=== PATIENT | male | born 1990 | race Caucasian/White ===

== ENCOUNTER 2020-03-02 19:44 | Observation (INO) | payer BC ==
[2020-03-02 20:04] VITALS: BMI 33.6
[2020-03-02] MEDS ORDERED: ACETAMINOPHEN 500 MG TAB PO PRN (22:03)
[2020-03-02] MEDS ORDERED: MORPHINE 4 MG/ML SYR IV PRN (22:03)
[2020-03-02] MEDS ORDERED: ONDANSETRON 4 MG/2 ML VIAL IV PRN (22:03)
--- NOTE | 2020-03-02 23:50 | P.HP ---
Certification for Inpatient Patient admitted to: Observation With expected LOS: <2 Midnights Patient will require the following post-hospital care: None Practitioner: I am a practitioner with admitting privileges, knowledge of patient current condition, hospital course, and medical plan of care. Services: Services provided to patient in accordance with Admission requirements found in Title 42 Section 412.3 of the Code of Federal Regulations <GuilleNoel - Last Filed: 03/02/20 23:44> Patient History Date of Service: 03/02/20 Primary Care Provider: Dr. Sanchez Reason for admission: Chest Pain History of Present Illness: This is a 29-year-old gentleman that was initially seen at [facility] emergency room for hypertensive urgency and chest pain that started acutely today. Patient stated that he has had several 's stressful events that have occurred recently causing him to be more anxious. Stated that he does have a history of mild hypercholesterolemia in the past and blood pressure but that is controlled with diet currently. Stated that he started to have some numbness of the face today after he became distressed and then started to have chest tightness. At that time patient went to the free standing emergency room for further evaluation and was worked up for chest pain. Initial evaluation did not show any acute findings on blood work but the patient was found to be very lipemic in nature. Because of this they are concerned that there may be some underlying pathology with his past medical history and then current events. Patient was directly admitted to Dr. Romero. I was called to evaluate patient for further work up for his chest pain. Patient stated that he is feeling better at this time. Home medications list reviewed: Yes - Past Medical/Surgical History Has patient received pneumonia vaccine in the past: No Diabetic: No -: HTN -: High Cholesterol Past Surgical History: Patient denies surgical history - Family History Family History: Reviewed- Non-Contributory - Social History Smoking Status: Never smoker Smoking therapy provided: No Alcohol use: Yes CD- Drugs: No Caffeine use: Yes Place of Residence: Home <Noel Han - Last Filed: 03/02/20 23:44> Date of Service: 03/02/20 <Jesus Romero - Last Filed: 03/10/20 15:19> Allergies No Known Allergies Allergy (Verified 03/02/20 21:39) Home Medications: NK [No Home Meds] 03/02/20 Review of Systems General: Unremarkable Eyes: Unremarkable ENT: Unremarkable Cardiovascular: Chest Pain Gastrointestinal: Unremarkable Genitourinary: Unremarkable Musculoskeletal: Unremarkable Integumentary: Unremarkable Neurological: Unremarkable Lymphatics: Unremarkable <Noel Han - Last Filed: 03/02/20 23:44> Physical Examination - Vital Signs Temperature: 97.3 F Blood Pressure: 122/86 Pulse: 74 Respirations: 16 Pulse Ox (%): 98 - Physical Exam General: Alert, In no apparent distress, Oriented x3, Cooperative HEENT: PERRLA, Mucous membr. moist/pink, EOMI Neck: Supple, 2+ carotid pulse no bruit, JVD not distended, No Thyromegaly Respiratory: Clear to auscultation bilaterally, Normal air movement Cardiovascular: No edema, Normal pulses, Regular rate/rhythm, Normal S1 S2, No gallops, No rubs, No murmurs Capillary refill: <2 Seconds Gastrointestinal: Normal bowel sounds, Soft and benign, Non-distended, No ascites, No tenderness, No masses, No rebound, No guarding Musculoskeletal: No clubbing, No swelling, No contractures, No erythema, No tenderness, No warmth Integumentary: No rashes, No breakdown, No significant lesion, No tend erness/swelling, No erythema, No warmth, No cyanosis Neurological: Normal speech, Normal strength at 5/5 x4 extr, Normal tone, Sensation intact, Cranial nerves 3-12 intact, Normal affect Lymphatics: No axilla or inguinal lymphadenopathy - Studies Laboratory Data (last 24 hrs) 03/02/20 23:00: Troponin I < 0.02 <Noel Han - Last Filed: 03/02/20 23:44> Assessment and Plan - Problems (Diagnosis) (1) Chest pain Status: Acute Qualifiers: Chest pain type: unspecified Qualified Code(s): R07.9 - Chest pain, unspecified (2) Hypertension Status: Acute Qualifiers: Hypertension type: essential hypertension Qualified Code(s): I10 - Essential (primary) hypertension (3) Hypercholesterolemia Status: Chronic - Plan 1. Patient will have trended troponins over the next several hr to ensure that it does not elevate. EKGs as necessary. 2. Pain medication as needed for chest pain 3. Vitals will be monitored for hypertensive elevations and will correct as necessary 4. Lipase will be checked for the lipemic blood work and cholesterol panel will also be drawn 5. Will continue to monitor patient over the next 23 hr. Patient most likely had hypertensive event that caused him to have chest tightness plus or minus some anxiety today based on his story. Unlikely that this is cardiac in origin but will continue to rule him out for the next 24 hr. If something were to acutely change will consult cardiology. Will further assess his lipid panel to see if patient needs to be on any anti lipidemic medication and blood pressure medicine as well. Discharge Plan: Home Plan to discharge in: 24 Hours - Advance Directives Does patient have a Living Will: No Does patient have a Durable POA for Healthcare: No - Code Status/Comfort Care Code Status Assessed: Yes Code Status: Full Code Critical Care: No Time Spent Managing Pts Care (In Minutes): 70 <Noel Han - Last Filed: 03/02/20 23:44> Date of Service: 03/02/20 Patient Will be admitted to be ruled out for acute coronary syndrome. Chart has been reviewed. Events in the last 24 hours has been noted. Agree with above findings as mentioned by PA. <Jesus Romero - Last Filed: 03/10/20 15:19>
[2020-03-03 03:16] LABS: Absolute Lymphocytes (CBC) 3.3 K/uL (0.7-4.9); Basophils % 0.5 % (0-1.3); Hematocrit 44.7 % (39.6-49.0); Lymphocytes % 34.2 % (15.3-44.8); MPV 7.9 fL (7.6-11.3); RBC Red Blood Cell Count 5.14 M/uL (4.33-5.43)
[2020-03-03 03:26] LABS: BUN Blood Urea Nitrogen 12 mg/dL (7-18); Bicarbonate 30 mmol/L (21-32); Glucose Level 90 mg/dL (74-106); HDL Cholesterol 35 mg/dL (40-60); LDL Cholesterol, Calculated 164 (<130); Lipase 95 U/L (73-393); Potassium 3.8 mmol/L (3.5-5.1); Sodium Level 143 mmol/L (136-145)
--- NOTE | 2020-03-03 08:58 | P.DS ---
Discharge Date: 03/03/20 Primary Care Provider: Dr. Sanchez Disposition: ROUTINE DISCHARGE Discharge Condition: GOOD Reason for Admission: Chest Pain Brief History of Present Illness: Patient is a 29-year-old gentleman who came into the hospital with chest discomfort. Patient was transferred to our facility from local emergency room for further evaluation. Hospital Course: Patient has been ruled out for acute coronary syndrome. EKG did not reveal any abnormality. At this time, patient is stable for discharge home. Vital Signs/Physical Exam: Temp Pulse Resp BP Pulse Ox 97.4 F 91 H 16 119/78 98 03/03/20 08:00 03/03/20 08:00 03/03/20 08:00 03/03/20 08:00 03/03/20 08:00 General: Alert, In no apparent distress, Oriented x3 Laboratory Data at Discharge: WBC 9.6 K/uL (4.3-10.9) 03/03/20 02:50 Hgb 15.0 g/dL (13.6-17.9) 03/03/20 02:50 Hct 44.7 % (39.6-49.0) 03/03/20 02:50 Plt Count 309 K/uL (152-406) 03/03/20 02:50 Sodium 143 mmol/L (136-145) 03/03/20 02:50 Potassium 3.8 mmol/L (3.5-5.1) 03/03/20 02:50 BUN 12 mg/dL (7-18) 03/03/20 02:50 Creatinine 0.76 mg/dL (0.55-1.3) 03/03/20 02:50 Glucose 90 mg/dL (74-106) 03/03/20 02:50 Troponin I < 0.02 ng/mL (0.0-0.045) 03/03/20 02:50 Triglycerides 186 mg/dL (<150) H 03/03/20 02:50 Cholesterol 236 mg/dL (<200) H 03/03/20 02:50 HDL Cholesterol 35 mg/dL (40-60) L 03/03/20 02:50 Cholesterol/HDL Ratio 6.74 03/03/20 02:50 Lipase 95 U/L (73-393) 03/03/20 02:50 Home Medications: NK [No Home Meds] 03/02/20 Patient Discharge Instructions: OK TO DC IV AND DC to HOME. FOLLOW-UP WITH PRIMARY CARE PROVIDER IN 1-2 WEEKS. FOLLOW-UP WITH CARDIOLOGY IN 2-4 WEEKS. RETURN TO THE ER IF symptoms worsen. CALL or TEXT DR. LYNCH AT [phone] IF ANY QUESTIONS REGARDING HOSPITAL STAY. PLEASE CALL THE FLOOR AT [phone] IF ANY MEDICATION OR NURSING QUESTIONS. Diet: AHA Activity: Fall precautions Followup: Dwayne Rivera MD [ACTIVE - CAN ADMIT] - Time spent managing pt's care (in minutes): 25
[2020-03-03] MEDS ORDERED: ASPIRIN EC 81 MG TAB PO SCH (09:00)
[2020-03-03 10:01] VITALS: O2SAT 98
[2020-03-03 12:54] VITALS: BP 130/90
[2020-03-03 13:06] VITALS: TEMP 97.9
--- NOTE | 2020-03-04 19:15 | EKG ---
Test Date: 2020-03-03 Test Time: 17:22:14 Mail Carrier Technician: CHETNA MEASUREMENT RESULTS: Intervals: Rate: 81 [place]: 188 QRSD: 90 QT: 360 QTc: 418 [place]: P: 29 [place]: 188 QRS: 43 T: 21 INTERPRETIVE STATEMENTS: Normal sinus rhythm Normal ECG No previous ECG available for comparison Electronically Signed On 03-04-20 19:12:52 CALL CENTER SUPPORT CONSULTANT by Dwayne Rivera
== END 2020-03-03 13:19 | disposition home or self-care (01) ==
LOC: 2ND 19:44 → INTOOBSV 19:44
PROVIDERS: ADMIT Hospitalist; ATTEND Hospitalist
DX: R07.9 Chest pain, unspecified (principal); I10 Essential (primary) hypertension; E78.00 Pure hypercholesterolemia, unspecified; Z20.828 Contact with and (suspected) exposure to other viral communicable diseases
CPT/HCPCS: 36415; 80048; 80061; 83690; 84484; 85025; 93005; U0002

== ENCOUNTER 2020-03-03 17:02 | Emergency (ER) | payer BC ==
[2020-03-03] MEDS ORDERED: FOLIC ACID 5 MG/ML VIAL ONE (17:51)
[2020-03-03] MEDS ORDERED: NA CHLORIDE 0.9% 1,000 ML ONE (17:51)
--- NOTE | 2020-03-03 18:08 | RAD REPORT ---
EXAM DESCRIPTION: CT - Head Brain Wo Cont - 03/03/2020 5:57 pm CLINICAL HISTORY: Headache COMPARISON: None. TECHNIQUE: Computed axial tomography of the head was obtained. IV contrast was not requested. All CT scans are performed using dose optimization technique as appropriate and may include automated exposure control or mA/KV adjustment according to patient size. FINDINGS: An intracranial bleed is not seen . The ventricles are normal in caliber. No extra-axial fluid collection is noted. Fluid within the sinuses/ mastoids is not seen. IMPRESSION: No acute intracranial abnormality is seen. If patient's symptoms persist MRI of the bra in would be recommended.
[2020-03-03 18:22] LABS: Absolute Lymphocytes (CBC) 1.3 K/uL (0.7-4.9); Basophils % 0.4 % (0-1.3); Hematocrit 49.2 % (39.6-49.0); Lymphocytes % 14.3 % (15.3-44.8); MPV 7.9 fL (7.6-11.3); RBC Red Blood Cell Count 5.69 M/uL (4.33-5.43)
--- NOTE | 2020-03-03 18:29 | RAD REPORT ---
EXAM DESCRIPTION: Trini Single View03/03/2020 6:06 pm CLINICAL HISTORY: Chest pain COMPARISON: 2017 FINDINGS: The lungs appear clear of acute infiltrate. The heart is normal size IMPRESSION: No acute abnormalities displayed
[2020-03-03 18:38] LABS: Protime INR 1.08
[2020-03-03 18:42] LABS: ALT/SGPT 122 U/L (12-78); AST/SGOT 48 U/L (15-37); Albumin 3.9 g/dL (3.4-5.0); Alkaline Phosphatase 90 U/L (45-117); BUN Blood Urea Nitrogen 10 mg/dL (7-18); Bicarbonate 26 mmol/L (21-32); Bilirubin Direct < 0.1 mg/dL (0-0.2); Bilirubin Total 0.5 mg/dL (0.2-1.0); Glucose Level 96 mg/dL (74-106); Magnesium 2.4 mg/dL (1.8-2.4); NT PRO-BNP 54 pg/mL (<125); Potassium 3.6 mmol/L (3.5-5.1); Protein, Total 8.1 g/dL (6.4-8.2); Sodium Level 141 mmol/L (136-145); Troponin (Emerg Dept Use Only) < 0.02 ng/mL (0.0-0.045)
[2020-03-03] MEDS ORDERED: AMLODIPINE 5 MG TAB ONE (19:01)
--- NOTE | 2020-03-03 19:43 | RAD REPORT ---
EXAM DESCRIPTION: MRI - Brain Wo Cont - 03/03/2020 7:20 pm CLINICAL HISTORY: Numbness COMPARISON: none TECHNIQUE: Axial, sagittal, and coronal magnetic images of the brain were obtained. Contrast was not requested FINDINGS: No abnormal signal is present within the brain. Diffusion-weighted/ADC mapping does not reveal evidence of acute infarction. The ventricles are normal caliber. An extra-axial fluid collection is not present Fluid within the sinuses/mastoids is not noted IMPRESSION: No acute abnormality is displayed
--- NOTE | 2020-03-03 19:50 | ER ---
Nurse's Notes [facility] Name: Gabe Norris Age: 29 yrs Sex: Male : 1990 Arrival Date: 03/03/2020 Time: 17:03 Bed 3 Private MD: Diagnosis: Essential (primary) hypertension;Anxiety disorder, unspecified;Hyperlipidemia, unspecified Presentation: 03/03 17:17 Chief complaint: Patient states: i started having some symptoms of a stroke around 4:10 tw2 pm today, i had covid so i cant smell, but then i smelled burnt toast, and then my head started to get this fuzzy and numb feeling, i have an appt with my doctor for BP meds. Coronavirus screen: The client reports previous COVID testing was negative. Date of collection: February 06, 2020. Ebola Screen: Patient denies travel to an Ebola-affected area in the 21 days before illness onset. Initial Sepsis Screen: Does the patient meet any 2 criteria? No. Patient's initial sepsis screen is negative. Does the patient have a suspected source of infection? No. Patient's initial sepsis screen is negative. Risk Assessment: Do you want to hurt yourself or someone else? Patient reports no desire to harm self or others. Onset of symptoms was March 03, 2020. 17:17 Method Of Arrival: Wheelchair tw2 17:17 Acuity: AMARJIT 3 tw2 Triage Assessment: 17:17 General: Appears in no apparent distress. Behavior is cooperative, anxious, quiet. tw2 Pain: Denies pain. EENT: No signs and/or symptoms were reported regarding the EENT system. Neuro: Level of Consciousness is awake, alert, obeys commands, Oriented to person, place, time, situation. Cardiovascular: Heart tones S1 S2 Patient's skin is warm and dry. Respiratory: Airway is patent Respiratory effort is even, unlabored, Respiratory pattern is regular, symmetrical, Breath sounds are clear bilaterally. GI: No signs and/or symptoms were reported involving the gastrointestinal system. Abdomen is round non-distended, obese, Bowel sounds present X 4 quads. : No signs and/or symptoms were reported regarding the genitourinary system. Derm: No signs and/or symptoms reported regarding the dermatologic system. Musculoskeletal: Range of motion: intact in all extremities, equal engraver wood b/l. Historical: - Allergies: 17:18 No Known Allergies; ph - Home Meds: 17:18 None [Active]; ph - PMHx: 17:18 None; ph - Immunization history:: Adult Immunizations unknown. - Social history:: Smoking status: Patient denies any tobacco usage or history of. Patient uses alcohol, occasionally. - Family history:: not pertinent. Screenin:17 Abuse screen: Denies threats or abuse. Denies injuries from another. Nutritional ph screening: No deficits noted. Tuberculosis screening: No symptoms or risk factors identified. Fall Risk None identified. Assessment: 17:21 Reassessment: see triage assessment. tw2 17:29 Reassessment: provider at bedside at this time. tw2 18:44 Reassessment: Patient appears in no apparent distress at this time. No changes from tw2 previously documented assessment. Patient and/or family updated on plan of care and expected duration. Pain level reassessed. Patient is alert, oriented x 3, equal unlabored respirations, skin warm/dry/pink. Vital Signs: 17:17 BP 156 / 123; Pulse 89; Resp 16; Temp 97.3; Pulse Ox 100% on R/A; Weight 91.72 kg (R); tw2 Height 5 ft. 5 in. (165.10 cm); 18:44 BP 147 / 100; Pulse 79; Resp 14; Pulse Ox 99% on R/A; tw2 19:29 BP 163 / 109; Pulse 86; Resp 18; Pulse Ox 100% on R/A; mg2 17:17 Body Mass Index 33.65 (91.72 kg, 165.10 cm) tw2 Hu Coma Score: 17:21 Eye Response: spontaneous(4). Verbal Response: oriented(5). Motor Response: obeys tw2 commands(6). Total: 15. NIH Stroke Scale Scores: 17:22 NIHSS Score: 0 tw2 17:36 NIHSS Score: 0 earl ED Course: 17:03 Patient arrived in ED. as 17:17 Alessandra Biggs, RN is Primary Nurse. tw2 17:18 Patient has correct armband on for positive identification. Placed in gown. Bed in low ph position. Call light in reach. Side rails up X 1. Pulse ox on. NIBP on. Door closed. Noise minimized. Warm blanket given. 17:18 Arm band placed on Patient placed in an exam room, on a stretcher. ph 17:20 Triage completed. tw2 17:26 Mp Dunbar MD is Attending Physician. [facility] 17:26 EKG done, by ED staff, reviewed by Mp Dunbar MD. mh5 17:45 CT Head Brain wo Cont Sent. 5 17:45 LFT's Sent. 5 17:45 Magnesium Sent. 5 17:45 NT PRO-BNP Sent. 5 17:45 PT-INR Sent. 5 17:46 Troponin (emerg Dept Use Only) Sent. 5 17:46 Basic Metabolic Panel Sent. 5 17:46 CBC with Diff Sent. 5 17:46 Initial lab(s) drawn, by me, sent to lab. Inserted saline lock: 20 gauge in right [facility] antecubital area, using aseptic technique. Blood collected. 17:57 CT Head Brain wo Cont In Process Unspecified. EDMS 18:05 XRAY Chest (1 view) In Process Unspecified. EDMS 18:17 Basic Metabolic Panel Sent. 5 18:17 CBC with Diff Sent. 5 18:17 LFT's Sent. mh5 18:17 Magnesium Sent. 5 18:17 NT PRO-BNP Sent. 5 18:17 PT-INR Sent. 5 18:17 Troponin (emerg Dept Use Only) Sent. 5 18:18 Lab(s) recollected, by me, sent to lab. [facility] 18:57 Report given to HarithaRN and MILLA Gardiner. tw2 19:20 Brain Wo Cont In Process Unspecified. EDMS 19:50 Dwayne Rivera MD is Referral Physician. earl 19:50 Zander Valle MD is Referral Physician. [facility] 20:05 No provider procedures requiring assistance completed. IV discontinued, intact, mg2 bleeding controlled, No redness/swelling at site. Pressure dressing applied. Administered Medications: Discontinued: NS 0.9% 1000 ml IV at 125 ml/hr continuous 17:40 Drug: NS 0.9% 1000 ml Route: IV; Rate: 125 ml/hr; Site: right antecubital; tw2 17:40 Drug: foLIC Acid 1 mg Route: IVPB; Site: right antecubital; tw2 19:00 Follow up: Response: No adverse reaction; IV Status: Completed infusion mg2 18:49 Drug: Norvasc 5 mg Route: PO; tw2 20:00 Follow up: Response: No adverse reaction mg2 19:52 Drug: Aspirin 162 mg Route: PO; mg2 20:00 Follow up: Response: No adverse reaction; Medication administered at discharge. mg2 19:52 Drug: Ativan 0.5 mg Route: IVP; Site: right antecubital; mg2 20:00 Follow up: Response: No adverse reaction; Medication administered at discharge. mg2 19:52 Drug: ToPROL XL 25 mg Route: PO; mg2 20:00 Follow up: Response: No adverse reaction; Medication administered at discharge. mg2 Outcome: 19:50 Discharge ordered by MD. earl 20:05 Discharged to home via wheelchair, with family. mg2 20:05 Condition: stable 20:05 Discharge instructions given to patient, family, Instructed on discharge instructions, follow up and referral plans. medication usage, Demonstrated understanding of instructions, follow-up care, medications, Prescriptions given X 20:06 Patient left the ED. mg2 NIH Stroke Scale - NIH Stroke Score Date: 03/03/2020 Time: 17:22 Total Score = 0 1a. Level of Consciousness (LOC) - 0(Alert) 1b. Level of Consciousness (LOC) (Year \T\ Age) - 0(Both) 1c. LOC Commands (Open \T\ Closes Eyes/Food Service) - 0(Both) 2. Best Gaze (Lateral Gaze Paresis) - 0(Normal) 3. Visual Field Loss - 0(No visual loss) 4. Facial Palsy - 0(Normal) 5a. Left Arm: Motor (10-second hold) - 0(No drift) 5b. Right Arm: Motor (10-second hold) - 0(No drift) 6a. Left Leg: Motor (5-second hold - always test supine) - 0(No drift) 6b. Right Leg: Motor (5-second hold - always test supine) - 0(No drift) 7. Limb Ataxia (finger/nose \T\ heel/barr - test with eyes open) - 0(Absent) 8. Sensory Loss (pinprick arms/legs/face) - 0(Normal) 9. Best Language: Aphasia (description/naming/reading) - 0(No aphasia) 10. Dysarthria (speech clarity - read or repeat words) - 0(Normal) 11. Extinction and Inattention (visual/tactile/auditory/spatial/personal) - 0(No abnormality) Initials: tw2 NIH Stroke Scale - NIH Stroke Score Date: 03/03/2020 Time: 17:36 Total Score = 0 1a. Level of Consciousness (LOC) - 0(Alert) 1b. Level of Consciousness (LOC) (Year \T\ Age) - 0(Both) 1c. LOC Commands (Open \T\ Closes Eyes/Food Service) - 0(Both) 2. Best Gaze (Lateral Gaze Paresis) - 0(Normal) 3. Visual Field Loss - 0(No visual loss) 4. Facial Palsy - 0(Normal) 5a. Left Arm: Motor (10-second hold) - 0(No drift) 5b. Right Arm: Motor (10-second hold) - 0(No drift) 6a. Left Leg: Motor (5-second hold - always test supine) - 0(No drift) 6b. Right Leg: Motor (5-second hold - always test supine) - 0(No drift) 7. Limb Ataxia (finger/nose \T\ heel/barr - test with eyes open) - 0(Absent) 8. Sensory Loss (pinprick arms/legs/face) - 0(Normal) 9. Best Language: Aphasia (description/naming/reading) - 0(No aphasia) 10. Dysarthria (speech clarity - read or repeat words) - 0(Normal) 11. Extinction and Inattention (visual/tactile/auditory/spatial/personal) - 0(No abnormality) Initials: earl Signatures: Dispatcher [employer] EDMp Hernandez MD MD cha Martinez, Amelia as Hall, Patricia, RN RN Alessandra Biggs RN RN [facility] Cynthia Matt [facility] Ryan Sparrow RN RN mg2 Corrections: (The following items were deleted from the chart) 17:22 17:17 Musculoskeletal: Range of motion: intact in all extremities, tw2 tw2 17:34 17:17 BP 98 / 61; Pulse 67bpm; Resp 12bpm; Pulse Ox 95% RA; Temp 97.3F tw2 Temporal; 91.72 kg Reported; Height 5 ft. 5 in.; BMI: 33.6; Pain 0/10; tw2 17:34 17:17 BP 156 / 123; Pulse 89bpm; Resp 16bpm; Pulse Ox 100% RA; tw2 tw2
--- NOTE | 2020-03-03 19:50 | EDPHYS ---
Physician Documentation [facility] Name: Gabe Norris Age: 29 yrs Sex: Male : 1990 Arrival Date: 03/03/2020 Time: 17:03 Bed 3 Private MD: ED Physician Mp Dunbar HPI: 03/03 17:36 This 29 yrs old Male presents to ER via Wheelchair with complaints of earl Numbness Of Face, Numbness Of Arm, High Blood Pressure. 17:36 The patient's problem is reported as paresthesias, all over, weakness. Onset: The earl symptoms/episode began/occurred just prior to arrival, this morning. Duration: The episode is continuous. Context: the episode(s) was witnessed, by a friend. The symptoms are alleviated by nothing. The symptoms are aggravated by nothing. Associated signs and symptoms: Pertinent positives: dizziness, gait abnormality, headache, lightheadedness. Severity of symptoms: At their worst the symptoms were mild moderate in the emergency department the symptoms are unchanged. Patient's baseline: Neuro: alert and fully oriented. The patient has not experienced similar symptoms in the past. Historical: - Allergies: 17:18 No Known Allergies; ph - Home Meds: 17:18 None [Active]; ph - PMHx: 17:18 None; ph - Immunization history:: Adult Immunizations unknown. - Social history:: Smoking status: Patient denies any tobacco usage or history of. Patient uses alcohol, occasionally. - Family history:: not pertinent. ROS: 17:36 Constitutional: Negative for fever, chills, and weight loss, Eyes: Negative for injury, earl pain, redness, and discharge, ENT: Negative for injury, pain, and discharge, Neck: Negative for injury, pain, and swelling, Cardiovascular: Negative for chest pain, palpitations, and edema, Respiratory: Negative for shortness of breath, cough, wheezing, and pleuritic chest pain, Abdomen/GI: Negative for abdominal pain, nausea, vomiting, diarrhea, and constipation, Back: Negative for injury and pain, : Negative for injury, bleeding, discharge, and swelling, MS/Extremity: Negative for injury and deformity, Skin: Negative for injury, rash, and discoloration, Psych: Negative for depression, anxiety, suicide ideation, homicidal ideation, and hallucinations, Allergy/Immunology: Negative for hives, rash, and allergies, Endocrine: Negative for neck swelling, polydipsia, polyuria, polyphagia, and marked weight changes, Hematologic/Lymphatic: Negative for swollen nodes, abnormal bleeding, and unusual bruising. 17:36 Neuro: Positive for headache, weakness. Exam: 17:36 Constitutional: This is a well developed, well nourished patient who is awake, alert, earl and in no acute distress. Head/Face: Normocephalic, atraumatic. Eyes: Pupils equal round and reactive to light, extra-ocular motions intact. Lids and lashes normal. Conjunctiva and sclera are non-icteric and not injected. Cornea within normal limits. Periorbital areas with no swelling, redness, or edema. ENT: Nares patent. No nasal discharge, no septal abnormalities noted. Tympanic membranes are normal and external auditory canals are clear. Oropharynx with no redness, swelling, or masses, exudates, or evidence of obstruction, uvula midline. Mucous membranes moist. Neck: Trachea midline, no thyromegaly or masses palpated, and no cervical lymphadenopathy. Supple, full range of motion without nuchal rigidity, or vertebral point tenderness. No Meningismus. Chest/axilla: Normal chest wall appearance and motion. Nontender with no deformity. No lesions are appreciated. Cardiovascular: Regular rate and rhythm with a normal S1 and S2. No gallops, murmurs, or rubs. Normal PMI, no JVD. No pulse deficits. Respiratory: Lungs have equal breath sounds bilaterally, clear to auscultation and percussion. No rales, rhonchi or wheezes noted. No increased work of breathing, no retractions or nasal flaring. Abdomen/GI: Soft, non-tender, with normal bowel sounds. No distension or tympany. No guarding or rebound. No evidence of tenderness throughout. Back: No spinal tenderness. No costovertebral tenderness. Full range of motion. Male : Normal genitalia with no discharge or lesions. Skin: Warm, dry with normal turgor. Normal color with no rashes, no lesions, and no evidence of cellulitis. MS/ Extremity: Pulses equal, no cyanosis. Neurovascular intact. Full, normal range of motion. Neuro: Awake and alert, GCS 15, oriented to person, place, time, and situation. Cranial nerves II-XII grossly intact. Motor strength 5/5 in all extremities. Sensory grossly intact. Cerebellar exam normal. Normal gait. Psych: Awake, alert, with orientation to person, place and time. Behavior, mood, and affect are within normal limits. 17:40 ECG was reviewed by the Attending Physician. earl 19:25 Radiologist reports: negative, see report earl Vital Signs: 17:17 BP 156 / 123; Pulse 89; Resp 16; Temp 97.3; Pulse Ox 100% on R/A; Weight 91.72 kg (R); tw2 Height 5 ft. 5 in. (165.10 cm); 18:44 BP 147 / 100; Pulse 79; Resp 14; Pulse Ox 99% on R/A; tw2 19:29 BP 163 / 109; Pulse 86; Resp 18; Pulse Ox 100% on R/A; mg2 17:17 Body Mass Index 33.65 (91.72 kg, 165.10 cm) tw2 NIH Stroke Scale Scores: 17:22 NIHSS Score: 0 tw2 17:36 NIHSS Score: 0 earl Hu Coma Score: 17:21 Eye Response: spontaneous(4). Verbal Response: oriented(5). Motor Response: obeys tw2 commands(6). Total: 15. MDM: 17:26 Patient medically screened. earl 17:39 Differential diagnosis: CVA, TIA, metabolic disorder, drug effects. Data reviewed: [facility] vital signs, nurses notes, lab test result(s), EKG, radiologic studies, CT scan, MRI, plain films. Data interpreted: engine monitor: rate is 89 beats/min, rhythm is regular, Pulse oximetry: on room air is 100 %. Test interpretation: by ED physician or midlevel provider: ECG, plain radiologic studies. Counseling: I had a detailed discussion with the patient and/or guardian regarding: the historical points, exam findings, and any diagnostic results supporting the discharge/admit diagnosis, lab results, radiology results. 03/03 17:33 Order name: Basic Metabolic Panel; Complete Time: 19: [facility] 03/03 17:33 Order name: CBC with Diff; Complete Time: 19: [facility] 03/03 17:33 Order name: LFT's; Complete Time: 19: [facility] 03/03 17:33 Order name: Magnesium; Complete Time: 19: [facility] 03/03 17:33 Order name: NT PRO-BNP; Complete Time: 19:01 [facility] 03/03 17:33 Order name: PT-INR; Complete Time: 19:01 [facility] 03/03 17:33 Order name: Troponin (emerg Dept Use Only); Complete Time: 19:01 [facility] 03/03 17:33 Order name: XRAY Chest (1 view); Complete Time: 18:39 [facility] 03/03 17:34 Order name: CT Head Brain wo Cont; Complete Time: 18:39 [facility] 03/03 18:47 Order name: Brain Wo Cont; Complete Time: 19:49 EDMS 03/03 17:33 Order name: Cardiac monitoring; Complete Time: 17:35 [facility] 03/03 17:33 Order name: EKG - Nurse/Tech; Complete Time: 17:34 [facility] 03/03 17:33 Order name: IV Saline Lock; Complete Time: 17:45 [facility] 03/03 17:33 Order name: Labs collected and sent; Complete Time: 17:45 [facility] 03/03 17:33 Order name: O2 Per Protocol; Complete Time: 17:35 [facility] 03/03 17:33 Order name: O2 Sat Monitoring; Complete Time: 17:35 [facility] 03/03 18:41 Order name: Vital Signs; Complete Time: 18:44 [facility] EC:40 Rate is 81 beats/min. Rhythm is regular. QRS Beebe is Normal. GA interval is normal. QRS earl interval is normal. QT interval is normal. No Q waves. T waves are Normal. No ST changes noted. Clinical impression: Normal ECG and No evidence of ischemia. Interpreted by me. Reviewed by me. Administered Medications: Discontinued: NS 0.9% 1000 ml IV at 125 ml/hr continuous 17:40 Drug: NS 0.9% 1000 ml Route: IV; Rate: 125 ml/hr; Site: right antecubital; tw2 17:40 Drug: foLIC Acid 1 mg Route: IVPB; Site: right antecubital; tw2 19:00 Follow up: Response: No adverse reaction; IV Status: Completed infusion mg2 18:49 Drug: Norvasc 5 mg Route: PO; tw2 20:00 Follow up: Response: No adverse reaction mg2 19:52 Drug: Aspirin 162 mg Route: PO; mg2 20:00 Follow up: Response: No adverse reaction; Medication administered at discharge. mg2 19:52 Drug: Ativan 0.5 mg Route: IVP; Site: right antecubital; mg2 20:00 Follow up: Response: No adverse reaction; Medication administered at discharge. mg2 19:52 Drug: ToPROL XL 25 mg Route: PO; mg2 20:00 Follow up: Response: No adverse reaction; Medication administered at discharge. mg2 Disposition: 03/03/20 19:50 Discharged to Home. Impression: Essential (primary) hypertension, Anxiety disorder, unspecified, Hyperlipidemia, unspecified. - Condition is Stable. - Discharge Instructions: Panic Attacks, Hypertension, Hypertension, [id number], Cholesterol, How to Take Your Blood Pressure, Kalq-me-[id number], Panic Attacks, Lyab-ak-Uqju, Aspirin and Your Heart, Managing Your Hypertension. - Prescriptions for Klonopin 1 mg Oral Tablet - take 1 tablet by ORAL route every 12 hours As needed; 20 tablet. Norvasc 5 mg Oral Tablet - take 1 tablet by ORAL route once daily; 20 tablet. Toprol XL 25 mg Oral Tablet - take 1 tablet by ORAL route once daily; 20 tablet. - Medication Reconciliation Form, Thank You Letter, Antibiotic Education, Prescription Opioid Use form. - Follow up: Private Physician; When: 2 - 3 days; Reason: Recheck today's complaints, Continuance of care, Re-evaluation by your physician. Follow up: Dwayne Rivera; When: 2 - 3 days; Reason: Recheck today's complaints, Continuance of care, Re-evaluation by your physician. Follow up: Zander Valle; When: 2 - 3 days; Reason: Recheck today's complaints, Re-evaluation by your physician. - Problem is new. - Symptoms have improved. NIH Stroke Scale - NIH Stroke Score Date: 03/03/2020 Time: 17:22 Total Score = 0 1a. Level of Consciousness (LOC) - 0(Alert) 1b. Level of Consciousness (LOC) (Year \T\ Age) - 0(Both) 1c. LOC Commands (Open \T\ Closes Eyes/Salesperson Women'S Hats) - 0(Both) 2. Best Gaze (Lateral Gaze Paresis) - 0(Normal) 3. Visual Field Loss - 0(No visual loss) 4. Facial Palsy - 0(Normal) 5a. Left Arm: Motor (10-second hold) - 0(No drift) 5b. Right Arm: Motor (10-second hold) - 0(No drift) 6a. Left Leg: Motor (5-second hold - always test supine) - 0(No drift) 6b. Right Leg: Motor (5-second hold - always test supine) - 0(No drift) 7. Limb Ataxia (finger/nose \T\ heel/barr - test with eyes open) - 0(Absent) 8. Sensory Loss (pinprick arms/legs/face) - 0(Normal) 9. Best Language: Aphasia (description/naming/reading) - 0(No aphasia) 10. Dysarthria (speech clarity - read or repeat words) - 0(Normal) 11. Extinction and Inattention (visual/tactile/auditory/spatial/personal) - 0(No abnormality) Initials: tw2 NIH Stroke Scale - NIH Stroke Score Date: 03/03/2020 Time: 17:36 Total Score = 0 1a. Level of Consciousness (LOC) - 0(Alert) 1b. Level of Consciousness (LOC) (Year \T\ Age) - 0(Both) 1c. LOC Commands (Open \T\ Closes Eyes/Salesperson Women'S Hats) - 0(Both) 2. Best Gaze (Lateral Gaze Paresis) - 0(Normal) 3. Visual Field Loss - 0(No visual loss) 4. Facial Palsy - 0(Normal) 5a. Left Arm: Motor (10-second hold) - 0(No drift) 5b. Right Arm: Motor (10-second hold) - 0(No drift) 6a. Left Leg: Motor (5-second hold - always test supine) - 0(No drift) 6b. Right Leg: Motor (5-second hold - always test supine) - 0(No drift) 7. Limb Ataxia (finger/nose \T\ heel/barr - test with eyes open) - 0(Absent) 8. Sensory Loss (pinprick arms/legs/face) - 0(Normal) 9. Best Language: Aphasia (description/naming/reading) - 0(No aphasia) 10. Dysarthria (speech clarity - read or repeat words) - 0(Normal) 11. Extinction and Inattention (visual/tactile/auditory/spatial/personal) - 0(No abnormality) Initials: earl Signatures: Dispatcher [employer] Mp Guido MD MD cha Hall, Patricia, RN RN ph Alessandra Biggs, RN RN tw2 Gardose, Ryan, RN RN mg2 Corrections: (The following items were deleted from the chart) 18:47 17:35 MR STROKE PROTOCOL+MRI.RAD.BRZ ordered. EDMS EDMS 20:06 19:50 03/03/2020 19:50 Discharged to Home. Impression: Essential (primary) mg2 hypertension; Anxiety disorder, unspecified; Hyperlipidemia, unspecified. Condition is Stable. Discharge Instructions: Panic Attacks, Hypertension, Hypertension, Leus-ge-Qtgl, How to Take Your Blood Pressure, Ckka-qy-Duyg, Panic Attacks, Afns-yz-[id number], Aspirin and Your Heart, Managing Your Hypertension, Cholesterol. Prescriptions for Klonopin 1 mg Oral Tablet - take 1 tablet by ORAL route every 12 hours As needed; 20 tablet, Norvasc 5 mg Oral Tablet - take 1 tablet by ORAL route once daily; 20 tablet, Toprol XL 25 mg Oral Tablet - take 1 tablet by ORAL route once daily; 20 tablet. and Forms are Medication Reconciliation Form, Thank You Letter, Antibiotic Education, Prescription Opioid Use. Follow up: Private Physician; When: 2 - 3 days; Reason: Recheck today's complaints, Continuance of care, Re-evaluation by your physician. Follow up: Dwayne Rivera; When: 2 - 3 days; Reason: Recheck today's complaints, Continuance of care, Re-evaluation by your physician. Follow up: Zander Valle; When: 2 - 3 days; Reason: Recheck today's complaints, Re-evaluation by your physician. Problem is new. Symptoms have improved. earl
[2020-03-03] MEDS ORDERED: LORazepam 2 MG/ML VIAL ONE (20:00)
[2020-03-03] MEDS ORDERED: METOPROLOL XL 50 MG TAB PO ONE (20:00)
[2020-03-03] MEDS ORDERED: ASPIRIN EC 81 MG TAB PO ONE (20:00)
[2020-03-05 19:39] VITALS: TEMP 97.3
[2020-03-05 19:59] VITALS: BP 163/109; O2SAT 100
== END 2020-03-03 20:06 | disposition home or self-care (01) ==
LOC: ER 17:02
DX: I10 Essential (primary) hypertension (principal); F41.9 Anxiety disorder, unspecified; E78.5 Hyperlipidemia, unspecified; R53.1 Weakness
CPT/HCPCS: 85025; 80048; 36415; 83735; 85610; 80076; 84484; 83880; 70450; 71045; 70551; J7030; 96365; 96375; 99284

== ENCOUNTER 2023-01-09 22:17 | Emergency (ER) | payer BC ==
[2023-01-09 23:36] LABS: Absolute Lymphocytes (CBC) 1.2 K/uL (0.7-4.9); Lymphocytes % 11.8 % (15.3-44.8); MCV 86.7 fL (80-100); MPV 7.6 fL (7.6-11.3); Platelets 320 thou/uL (152-406); RBC Red Blood Cell Count 5.42 M/uL (4.33-5.43)
[2023-01-09 23:39] LABS: Protime INR 1.08
[2023-01-09 23:53] LABS: ALT/SGPT 83 U/L (16-61); AST/SGOT 43 U/L (15-37); Albumin 3.8 g/dL (3.4-5.0); Alkaline Phosphatase 83 U/L (45-117); BUN Blood Urea Nitrogen 9 mg/dL (7-18); Bicarbonate 26 mEq/L (21-32); Bilirubin Total 0.4 mg/dL (0.2-1.0); Glomerular Filtration Rate 124 ml/min (=/>90); Glucose Level 140 mg/dL (74-106); Magnesium 2.2 mg/dL (1.6-2.4); Potassium 3.4 mEq/L (3.5-5.1); Protein, Total 7.7 g/dL (6.4-8.2); Sodium Level 140 mEq/L (136-145); Troponin High Sensitivity 5.8 pg/mL (<58.9)
[2023-01-09 23:54] LABS: Bilirubin Direct < 0.1 mg/dL (0-0.2); Bilirubin Indirect, Calculated ND mg/dL (0.2-0.8)
[2023-01-10] MEDS ORDERED: METOPROLOL TAR 25 MG TAB ONE (00:49)
[2023-01-10] MEDS ORDERED: NA CHLORIDE 0.9% 1,000 ML ONE (00:49)
--- NOTE | 2023-01-10 01:30 | EDPHYS ---
Physician Documentation [facility] Name: Gabe Norris Age: 32 yrs Sex: Male : 1990 Arrival Date: 01/09/2023 Time: 22:17 Bed 18 Private MD: ED Physician Dennys Samuels HPI: 01/10 02:38 This 32 yrs old Male presents to ER via Ambulatory with complaints of Leg Pain, kb Headache. 02:38 The patient has not recently seen a physician. Patient is a 32-year-old male with a kb history of anxiety and hypertension who presents for dizziness, head pressure and a weird feeling in his left leg. States he was sitting on his couch watching Astros game and eating candy when symptoms started at 7:30 PM. States he walked around for about an hour to see if symptoms resolved but then he started getting anxious and thought he was developing more symptoms so he decided to come in to get checked out. States he has not been taking medication for anxiety or hypertension because his PCP retired. States he does have leftover metoprolol but he has not been taking but will restart it.. Historical: - Allergies: 01/09 22:35 No Known Allergies; cm10 - Home Meds: 22:35 None [Active]; cm10 - PMHx: 22:35 Hypertensive disorder; Anxiety; cm10 - PSHx: 22:35 None; cm10 - Immunization history:: Adult Immunizations unknown. - Social history:: Smoking status: Patient denies any tobacco usage or history of. ROS: 01/10 02:38 Constitutional: Negative for fever, chills, and weight loss, kb Neuro: Positive for dizziness, headache, All other systems are negative, Exam: 02:38 Constitutional: This is a well developed, well nourished patient who is awake, alert, kb and in no acute distress. Head/Face: Normocephalic, atraumatic. Eyes: Pupils equal round and reactive to light, extra-ocular motions intact. Lids and lashes normal. Conjunctiva and sclera are non-icteric and not injected. Cornea within normal limits. Periorbital areas with no swelling, redness, or edema. ENT: Moist Mucous membranes Cardiovascular: Regular rate Respiratory: Respirations even and unlabored. No increased work of breathing. Talking in full sentences Abdomen/GI: Soft, non-tender. No distention Skin: Warm, dry with normal turgor. Normal color. MS/ Extremity: Pulses equal, no cyanosis. Neurovascular intact. Full, normal range of motion. Neuro: Awake and alert, GCS 15, oriented to person, place, time, and situation. Moves all extremities. Normal gait. Vital Signs: 01/09 22:34 Pulse 107; Resp 18; Temp 98.5(TE); Pulse Ox 100% on R/A; Weight 95.25 kg (R); Height 5 cm10 ft. 5 in. (R); Pain 0/10; 22:36 BP 178 / 129; cm10 23:00 BP 162 / 115; Pulse 94; Resp 18 S; Pulse Ox 98% on R/A; jw7 01/10 00:00 BP 163 / 118; Pulse 98; Resp 23 S; Pulse Ox 96% on R/A; jw7 01:00 BP 160 / 118; Pulse 93; Resp 22 S; Pulse Ox 97% on R/A; jw7 01:30 BP 155 / 107; Pulse 86; Resp 19 S; Pulse Ox 98% on R/A; jw7 01/09 22:34 Body Mass Index 34.95 (95.25 kg, 165.1 cm) cm10 01/09 22:34 Pain Scale: Adult cm10 MDM: 01/09 22:24 Patient medically screened. kb 01/10 02:38 Differential diagnosis: generalized weakness, idiopathic dizziness, Hypertension, kb headache. Data reviewed: vital signs, nurses notes. Management of patient was discussed with the following: Dr. Samuels, who recommends outpatient treatment. Counseling: I had a detailed discussion with the patient and/or guardian regarding the historical points, exam findings, and any diagnostic results supporting the discharge/admit diagnosis, lab results, radiology results, the need for outpatient follow up, a family practitioner, to return to the emergency department if symptoms worsen or persist or if there are any questions or concerns that arise at home. ED course: Patient is awake, alert and oriented x4. Ambulates with steady gait. Equal strength bilaterally. Symmetrical movement of face.. 01/09 22:34 Order name: Basic Metabolic Panel; Complete Time: 00:01 kb 01/09 22:34 Order name: CBC with Diff; Complete Time: 23:41 kb 01/09 22:34 Order name: Hepatic Function; Complete Time: 00:01 kb 01/09 22:34 Order name: Magnesium; Complete Time: 00:01 kb 01/09 22:34 Order name: Protime (+inr); Complete Time: 23:41 kb 01/09 22:34 Order name: Ptt, Activated; Complete Time: 23:41 kb 01/09 22:34 Order name: Troponin High Sensitivity; Complete Time: 00:01 kb 01/09 22:34 Order name: CT Head Brain wo Cont kb 01/09 22:34 Order name: EKG; Complete Time: 22:35 kb 01/09 22:34 Order name: Cardiac monitoring; Complete Time: 23:26 kb 01/09 22:34 Order name: EKG - Nurse/Tech; Complete Time: 23:47 kb 01/09 22:34 Order name: IV Saline Lock; Complete Time: 23:26 kb 01/09 22:34 Order name: Labs collected and sent; Complete Time: 23:26 kb 01/09 22:34 Order name: NPO; Complete Time: 23:15 kb 01/09 22:34 Order name: O2 Per Protocol; Complete Time: 23:15 kb 01/09 22:34 Order name: O2 Sat Monitoring; Complete Time: 23:15 kb Administered Medications: 00:42 Drug: Metoprolol PO 25 mg PO once Route: PO; jw7 01:42 Follow up: Response: No adverse reaction; Marked relief of symptoms jw7 00:42 Drug: NS 0.9% IV 1000 ml IV at 1000 ml once Route: IV; Rate: 1000 ml; Site: left [facility] antecubital; 01:42 Follow up: Response: No adverse reaction; IV Status: Completed infusion; IV Intake: jw7 1000ml Disposition: 02:45 Co-signature as Attending Physician, Dennys Samuels MD I agree with the assessment sp4 and plan of care. I reviewed the patient's care provided by the Advanced Practice Provider and agree with the diagnosis and treatment plan. Disposition Summary: 01/10/23 01:30 Discharge Ordered Notes: Location: Home kb Condition: Stable kb Diagnosis - Essential (primary) hypertension kb - Dizziness and giddiness kb Followup: kb - With: Emergency Department - When: As needed - Reason: Worsening of condition Followup: kb - With: Private Physician - When: 2 - 3 days - Reason: Recheck today's complaints, Continuance of care, Re-evaluation by your physician Discharge Instructions: - Discharge Summary Sheet kb - Hypertension, Adult, [id number]-cb-[id number] kb - Dizziness, Kmwh-[id number] kb Forms: - Medication Reconciliation Form kb - Thank You Letter kb - Antibiotic Education kb - Prescription Opioid Use kb - Patient Portal Instructions kb - Leadership Thank You Letter kb Signatures: Dispatcher [employer] EDAvis Lakhani FNP-C CHARMAINE-Dorita Whipple, RN RN jw7 Dennys Samuels MD MD sp4 Krissy Matt RN RN cm10
--- NOTE | 2023-01-10 01:30 | ER ---
Nurse's Notes [facility] Name: Gabe Norris Age: 32 yrs Sex: Male : 1990 Arrival Date: 01/09/2023 Time: 22:17 Bed 18 Private MD: Diagnosis: Essential (primary) hypertension;Dizziness and giddiness Presentation: 01/09 22:34 Chief complaint: Patient states: dizziness, head pressure and decreased sensation in cm10 left leg. Coronavirus screen: Vaccine status: Patient reports receiving the 2nd dose of the covid vaccine. Client denies travel out of the [place] in the last 14 days. Ebola Screen: Patient denies travel to an Ebola-affected area in the 21 days before illness onset. No symptoms or risks identified at this time. Initial Sepsis Screen: Does the patient meet any 2 criteria? No. Patient's initial sepsis screen is negative. Does the patient have a suspected source of infection? No. Patient's initial sepsis screen is negative. Risk Assessment: Do you want to hurt yourself or someone else? Patient reports no desire to harm self or others. Onset of symptoms was January 09, 2023. 22:34 Method Of Arrival: Ambulatory cm10 22:34 Acuity: AMARJIT 3 cm10 Triage Assessment: 23:00 Headache History: The patient has had previous headaches and this one is different than jw7 previous episodes. General: Appears in no apparent distress. comfortable, Behavior is calm, cooperative. Pain: Complains of pain in head Pain does not radiate. Pain currently is 0 out of 10 on a pain scale. Quality of pain is described as pressure, Pain began gradually, Is continuous, Also complains of no other associated symptoms. EENT: No deficits noted. No signs and/or symptoms were reported regarding the EENT system. Neuro: [place] Agitation-Sedation Scale (RASS): 0 - Alert and Calm Level of Consciousness is awake, alert, obeys commands, Oriented to person, place, time, situation. Cardiovascular: Heart tones S1 S2 present Capillary refill < 3 seconds Clubbing of nail beds is absent JVD is absent Patient's skin is warm and dry. Respiratory: Airway is patent Trachea midline Respiratory effort is even, unlabored, Respiratory pattern is regular, symmetrical. GI: Abdomen is round non-distended. : No deficits noted. No signs and/or symptoms were reported regarding the genitourinary system. Derm: Skin is intact, is healthy with good turgor, Skin is dry, Skin is normal, Skin temperature is warm. Musculoskeletal: Circulation, motion, and sensation intact. Range of motion: intact in all extremities. Historical: - Allergies: 22:35 No Known Allergies; cm10 - Home Meds: 22:35 None [Active]; cm10 - PMHx: 22:35 Hypertensive disorder; Anxiety; cm10 - PSHx: 22:35 None; cm10 - Immunization history:: Adult Immunizations unknown. - Social history:: Smoking status: Patient denies any tobacco usage or history of. Screenin:00 [facility] ED Fall Risk Assessment (Adult) History of falling in the last 3 months, jw7 including since admission No falls in past 3 months (0 pts) Score/Fall Risk Level 0 - 2 = Low Risk Oriented to surroundings, Maintained a safe environment. Abuse screen: Denies threats or abuse. Denies injuries from another. Nutritional screening: No deficits noted. Tuberculosis screening: No symptoms or risk factors identified. Assessment: 23:05 General: see triage assessment. jw7 23:47 Reassessment: Patient appears in no apparent distress at this time. Patient and/or [facility] family updated on plan of care and expected duration. Pain level reassessed. Patient is alert, oriented x 3, equal unlabored respirations, skin warm/dry/pink. Patient states feeling better. 01/10 00:43 Reassessment: Patient appears in no apparent distress at this time. No changes from [facility] previously documented assessment. Patient and/or family updated on plan of care and expected duration. Pain level reassessed. Patient is alert, oriented x 3, equal unlabored respirations, skin warm/dry/pink. 01:30 Reassessment: Patient appears in no apparent distress at this time. Patient and/or 7 family updated on plan of care and expected duration. Pain level reassessed. Patient is alert, oriented x 3, equal unlabored respirations, skin warm/dry/pink. Patient states symptoms have improved. 01:30 Pain: Denies pain. [facility] Vital Signs: 01/09 22:34 Pulse 107; Resp 18; Temp 98.5(TE); Pulse Ox 100% on R/A; Weight 95.25 kg (R); Height 5 cm10 ft. 5 in. (R); Pain 0/10; 22:36 BP 178 / 129; cm10 23:00 BP 162 / 115; Pulse 94; Resp 18 S; Pulse Ox 98% on R/A; jw7 01/10 00:00 BP 163 / 118; Pulse 98; Resp 23 S; Pulse Ox 96% on R/A; jw7 01:00 BP 160 / 118; Pulse 93; Resp 22 S; Pulse Ox 97% on R/A; jw7 01:30 BP 155 / 107; Pulse 86; Resp 19 S; Pulse Ox 98% on R/A; jw7 01/09 22:34 Body Mass Index 34.95 (95.25 kg, 165.1 cm) cm10 01/09 22:34 Pain Scale: Adult cm10 ED Course: 01/09 22:22 Patient arrived in ED. gm2 22:24 [facility] kb 22:24 Dennys Samuels MD is Attending Physician. kb 22:35 Triage completed. cm10 22:36 Arm band placed on Patient placed in an exam room, on a stretcher. cm10 23:00 Patient has correct armband on for positive identification. Placed in gown. Bed in low jw7 position. Side rails up X2. 23:06 CT Head Brain wo Cont In Process Unspecified. EDMS 23:26 Dorita Driscoll, RN is Primary Nurse. jw7 23:26 Initial lab(s) drawn, by wi, sent to lab. Inserted saline lock: 20 gauge in left jw7 antecubital area, using aseptic technique. Blood collected. 23:47 EKG done, by ED staff, reviewed by Avis WILSON. jw7 Administered Medications: 01/10 00:42 Drug: Metoprolol PO 25 mg PO once Route: PO; jw7 :42 Follow up: Response: No adverse reaction; Marked relief of symptoms jw7 00:42 Drug: NS 0.9% IV 1000 ml IV at 1000 ml once Route: IV; Rate: 1000 ml; Site: left jw7 antecubital; :42 Follow up: Response: No adverse reaction; IV Status: Completed infusion; IV Intake: jw7 1000ml Intake: :42 IV: 1000ml; Total: 1000ml. jw7 Outcome: :30 Discharge ordered by . santo 01:44 Patient left the ED. jw7 Signatures: Dispatcher [employer] EDAvis Lakhani FNP-C FNP-Ckb Waits, Jodi, RN RN jw7 Krissy Matt RN RN cm10 Donna Kaba 2
--- NOTE | 2023-01-10 11:54 | EKG ---
Test Date: 2023-01-09 Test Time: 23:40:39 Director Call Center Sales: GAVIN MEASUREMENT RESULTS: Intervals: Rate: 96 MS: 204 QRSD: 96 QT: 354 QTc: 447 Starbuck: P: 41 MS: 204 QRS: 49 T: 14 INTERPRETIVE STATEMENTS: Normal sinus rhythm Nonspecific T wave abnormality Abnormal ECG Compared to ECG 03/03/2020 17:22:14 T-wave abnormality now present Electronically Signed On 01-10-23 11:53:35 CDT by Samy Stanley
--- NOTE | 2023-01-10 18:30 | RAD REPORT ---
EXAM DESCRIPTION: CT - Head Brain Wo Cont - 01/10/2023 6:42 am CLINICAL HISTORY: Dizziness. Headache. Numbness. TECHNIQUE: 5 mm axial images of the intracranial structures were obtained without intravenous contra st. Coronal and sagittal reformatted images were obtained. COMPARISON: 03/03/2020.. DOSE OPTIMIZATION: This facility uses dose optimization techniques as appropriate to perform exams, i ncluding at least one of the following techniques: 1. Automated exposure control. 2. Adjustment of the mA and/or kV according to patient size (this includes techniques or standardized protocols for targeted exams where dose is matched to the indication/reason for exam, i.e. extremiti es or head). 3. Use of iterative reconstructive technique. FINDINGS: No abnormal acute extracerebral fluid collections are demonstrated. The cortical sulci, ventricles, and cisterns are within normal limits. There are no areas of altered attenuation to suggest acute hemorrhage, acute infarct, or mass lesio n. The visualized portions of the paranasal sinuses and mastoid air cells are clear. IMPRESSION: Normal study. Electronically signed by: Antonio Lancaster MD 01/09/2023 11:22 PM CDT Due to temporary technical issues with the PACS/Fluency reporting system, reports are being signed by the in house radiologists without review as a courtesy to insure prompt reporting. The interpreting radiologist is fully responsible for the content of the report.
== END 2023-01-10 01:44 | disposition home or self-care (01) ==
LOC: ER 22:17
DX: I10 Essential (primary) hypertension (principal); R42 Dizziness and giddiness; F41.9 Anxiety disorder, unspecified
CPT/HCPCS: 93005; 85025; 80048; 36415; 83735; 85610; 80076; 85730; 84484; 70450; J7030